=== PATIENT | female | born 2000 | race Asian ===

== ENCOUNTER 2018-01-31 16:22 | Emergency (ER) | payer OTHER, MEDICAID, SELFPAY ==
[2018-01-31 16:36] VITALS: BP 109/75; PULSE 75; RESP 15; TEMP 36.2; O2SAT 98; BMI 20.2
[2018-01-31 17:06] LABS: Bacteria Urine Few (2-10); Culture Indicated Urine Specimen Cultured; RBC Urine 0-1/HPF (0-5/HPF); Squamous Epithelial Cell Urine 0-1 /HPF; WBC Urine 30-100/HPF (0-5/HPF)
[2018-01-31] MEDS: CIPROFLOXACIN 500 MG TABLET PO (20:32)
--- NOTE | 2018-01-31 20:32 | ED_ITS ---
HPI - Female Genitourinary <Ml Woods PA-C - Last Filed: 01/31/18 21:34> General Chief complaint: Abdominal Pain Stated complaint: lower abdominal pain Time Seen by Provider: 01/31/18 20:01 Source: patient Mode of arrival: ambulatory Limitations: no limitations History of Present Illness HPI Narrative: This 17-year-old female has a history of recurrent UTI and also pyelonephritis. She states that 2 days ago, she began to have some mild dysuria and thought it might go away with cranberry juice, however she has also had frequency and urgency, and today she started having some bilateral flank pain, more noticeable on the right, so thought she had better come in. She states that she had some sweats earlier today but denies any fever at home. She states she threw up once this morning but has not thrown up since. She denies any other abdominal pain and states this feels like her previous infections. She states that she has been taking Macrobid after intercourse and did take this today. She states that she is not on control but did a test at home yesterday which was negative Related Data Previous Rx's Medication Instructions Recorded sulfamethoxazole-trimethoprim 1 tab PO BID #20 tab 10/06/16 ciprofloxacin HCl [Cipro] 500 mg PO BID #14 tab 01/31/18 Allergies Allergy/AdvReac Type Severity Reaction Status Date / Time No Known Drug Allergies Allergy Verified 01/31/18 16:36 Review of Systems <Ml Woods PA-C - Last Filed: 01/31/18 21:34> Review of Systems All systems reviewed & are unremarkable except as noted in HPI and below Exam <Ml Woods PA-C - Last Filed: 01/31/18 21:34> Narrative Exam Narrative: GENERAL APPEARANCE: Patient sitting comfortably, in no distress. LUNGS: Clear to auscultation bilaterally. HEART: Rate and rhythm regular without murmur, normal S1 and S2, no S3 or S4. ABDOMEN: Soft, ND, +BS x 4 quadrants, moderate suprapubic tenderness, mild bilateral CVAT. No tenderness elsewhere. EXTREMITIES: No cyanosis or edema Initial Vital Signs Initial Vital Signs: Vital Signs Temperature 97.2 F L 01/31/18 16:36 Pulse Rate 75 01/31/18 16:36 Respiratory Rate 15 01/31/18 16:36 Blood Pressure 109/75 01/31/18 16:36 Pulse Oximetry 98 01/31/18 16:36 <DO Mauricio Reid Last Filed: 02/01/18 06:03> Initial Vital Signs Initial Vital Signs: Vital Signs Temperature 97.2 F L 01/31/18 16:36 Pulse Rate 75 01/31/18 16:36 Respiratory Rate 15 01/31/18 16:36 Blood Pressure 109/75 01/31/18 16:36 Pulse Oximetry 98 01/31/18 16:36 Course <Ml Woods PA-C - Last Filed: 01/31/18 21:34> Additional Information: Patient has had pyelonephritis numerous times, is not having fever or vomiting and reasonable to treat as an outpatient. She wants to return to work tomorrow. She is not sure what antibiotic she has had in the past. Cipro was started here. Black box warning reviewed. Advised follow-up with PCP in 2 or 3 days to reassess, and also return if acutely worse, and she is agreeable Orders Ordered: Discontinued Medications Ciprofloxacin (Cipro) 500 mg PO NOW ONE Stop: 01/31/18 20:27 Last Admin: 01/31/18 20:32 Dose: 500 mg Vital Signs - 8 hr 01/31/18 16:36 01/31/18 21:01 Temperature 97.2 F L Pulse Rate 75 63 Respiratory Rate 15 18 Blood Pressure 109/75 119/82 Pulse Oximetry 98 100 <Daniel Brandt DO - Last Filed: 02/01/18 06:03> Orders Ordered: Discontinued Medications Ciprofloxacin (Cipro) 500 mg PO NOW ONE Stop: 01/31/18 20:27 Last Admin: 01/31/18 20:32 Dose: 500 mg Vital Signs - 8 hr 01/31/18 16:36 01/31/18 21:01 Temperature 97.2 F L Pulse Rate 75 63 Respiratory Rate 15 18 Blood Pressure 109/75 119/82 Pulse Oximetry 98 100 MDM - Female Genitourinary <EZEQUIEL Titus Last Filed: 01/31/18 21:34> Lab Data Lab Results 01/31/18 Range/Units 16:37 Urine RBC 0-1/hpf (0-5/HPF) Urine WBC 30-100/hpf H (0-5/HPF) Ur Squamous Epith Cells 0-1 /hpf Urine Bacteria Few (2-10) H (None) Ur Culture Indicated? Specimen cultured Micro UA Comment Not Reportable Point of Care Testing Test Results Negative Urine Dip Bedside Urine Glucose Negative Bedside Urine Bilirubin - Negative Bedside Urine Ketone + 15 Urine Specific [place] 1.030 Bedside Urine Occult Blood + Bedside Urine pH 6.0 Bedside Urine Protein - Negative Bedside Urine Urobilinogen - Negative Bedside Urine Nitrite - Negative Bedside Urine Leukocytes +++ 500 Esterase <Daniel Brandt DO - Last Filed: 02/01/18 06:03> Lab Data Lab Results 01/31/18 Range/Units 16:37 Urine RBC 0-1/hpf (0-5/HPF) Urine WBC 30-100/hpf H (0-5/HPF) Ur Squamous Epith Cells 0-1 /hpf Urine Bacteria Few (2-10) H (None) Ur Culture Indicated? Specimen cultured Micro UA Comment Not Reportable Point of Care Testing Test Results Negative Urine Dip Bedside Urine Glucose Negative Bedside Urine Bilirubin - Negative Bedside Urine Ketone + 15 Urine Specific [place] 1.030 Bedside Urine Occult Blood + Bedside Urine pH 6.0 Bedside Urine Protein - Negative Bedside Urine Urobilinogen - Negative Bedside Urine Nitrite - Negative Bedside Urine Leukocytes +++ 500 Esterase Discharge Plan Departure Patient Disposition: Home Clinical Impression: Pyelonephritis Discharge Date/Time: 01/31/18 21:01 Interventions: ED Discharge Assessment Last Done: 01/31/18 21:01 Instructions: DI for Kidney Infection Activity Restrictions/Additional Instructions: Please return if you have acutely worsening symptoms such as high fever, vomiting, or worsening pain. Otherwise, we have started you on an antibiotic called ciprofloxacin ster[place]. Please picker box operator the prescription in the morning and continue this twice daily. Please follow-up with your PCP in the next few days to assess your progress and make sure you are getting better. You should also discuss whether you need to be evaluated by a specialist due to your frequent infections Prescriptions: New ciprofloxacin HCl [Cipro] 500 mg tablet 500 mg PO BID Qty: 14 RF: 0 No Action sulfamethoxazole-trimethoprim 800 MG/160 MG tablet 1 tab PO BID Qty: 20 RF: 0 Referrals: Ilir Wilcox [Provider Group] Stand Alone Forms: Work/School Restrictions <Daniel Brandt DO - Last Filed: 02/01/18 06:03> Cosign ED Attending Cosacature Attestation: I was immediately available in the department for consultation. Documentation has been reviewed. I agree with assessment and plan.
[2018-01-31 21:01] VITALS: BP 119/82; PULSE 63; RESP 18; O2SAT 100
== END 2018-01-31 21:01 | disposition home or self-care (01) ==
PROVIDERS: Emergency Provider Internal Medicine
DX: N12 Tubulo-interstitial nephritis, not specified as acute or chronic (principal)
CPT/HCPCS: 81003; 81015; 81025; 87086; 99282